=== PATIENT | female | born 1945 | race Caucasian/White ===

== ENCOUNTER 2017-08-28 11:35 | Day surgery (SDC) | payer MEDICARE, MEDICAID ==
[2017-08-28] VITALS (11 sets, daily range): BP systolic 132–160; BP diastolic 63–84
[~2017-08-28] VITALS: Ht 154.9 cm; Wt 90.4 kg
[2017-08-28] MEDS ORDERED: insulin Lispro (HumaLOG) vial - multi-dose SQ SCH (13:05)
[2017-08-28] MEDS ORDERED: dextrose 50%-water 50ml dispensing syringe IV PRN ×2 (13:05)
[2017-08-28] MEDS ORDERED: diphenhydrAMINE 25mg capsule PO PRN (13:05)
[2017-08-28] MEDS ORDERED: LORazepam 0.5 MG tablet PO PRN (13:05)
[2017-08-28] MEDS ORDERED: nitroGLYCERIN 0.4mg SUBLingual tab SL PRN (13:05)
[2017-08-28] MEDS ORDERED: glucagon, human recombinant 1mg kit SUBCUT PRN (13:05)
[2017-08-28] MEDS ORDERED: normal saline 1000ml 1,000 ML IV SCH (13:05)
[2017-08-28] MEDS ORDERED: dextrose ORAL solution 15 GM/59 ML bottle PO PRN ×2 (13:05)
[2017-08-28] MEDS ORDERED: METO1TAB25 PO (13:07)
[2017-08-28] MEDS ORDERED: LORA0.5T PO (13:07)
[2017-08-28] MEDS ORDERED: OXYGEN (13:07)
[2017-08-28] MEDS ORDERED: CHOL10002 PO (13:07)
[2017-08-28] MEDS ORDERED: NEBULIZER (13:07)
[2017-08-28] MEDS ORDERED: SERT100T10 PO (13:07)
[2017-08-28] MEDS ORDERED: CLOP75TA35 PO (13:07)
[2017-08-28] MEDS ORDERED: midazolam 2 mg/2 ml injection ONE (13:11)
[2017-08-28] MEDS ORDERED: fentaNYL/PF 50MCG/1 ML 2ML syringe ONE (13:11)
[2017-08-28] MEDS ORDERED: heparin 1,000 UNITS/NS 500ml 500 ML ONE ×2 (13:12)
[2017-08-28] MEDS ORDERED: LIDOcaine 1%/PF (10mg/ml) 5ml vial ONE (13:12)
[2017-08-28] MEDS ORDERED: iohexol 350MG/ML 100ml bottle IV ONE (13:12)
[2017-08-28] MEDS ORDERED: iohexol 350 MG/ML 50ML vial IV ONE (13:12)
[2017-08-28] MEDS ORDERED: ondansetron/PF 4mg/2ml inj IV PRN (15:15)
[2017-08-28] MEDS ORDERED: proCHLORperazine 10 MG/2 ml inj IV PRN (15:15)
[2017-08-28] MEDS ORDERED: HYDROcodone/acetaminophen 5mg/325mg tablet PO PRN (15:15)
[2017-08-28] MEDS ORDERED: OXAZEpam 15mg capsule PO PRN (15:15)
[2017-08-28] MEDS ORDERED: HYDROcodone/acetaminophen 10/325mg tab PO PRN (15:15)
[2017-08-28] MEDS ORDERED: insulin glargine (Lantus) pen - multi-dose SQ SCH (21:00)
== END 2017-08-28 20:20 | disposition home or self-care (01) ==
LOC: SSTAY O 11:35
PROVIDERS: ATTEND Internal Medicine Cardiovascular Disease
DX: I25.119 Atherosclerotic heart disease of native coronary artery with unspecified angina pectoris (principal); I25.2 Old myocardial infarction; I10 Essential (primary) hypertension; E78.5 Hyperlipidemia, unspecified; F17.210 Nicotine dependence, cigarettes, uncomplicated; J44.9 Chronic obstructive pulmonary disease, unspecified; F32.9 Major depressive disorder, single episode, unspecified; I48.91 Unspecified atrial fibrillation; M19.90 Unspecified osteoarthritis, unspecified site; E11.9 Type 2 diabetes mellitus without complications; F60.89 Other specific personality disorders; F43.10 Post-traumatic stress disorder, unspecified; Z95.5 Presence of coronary angioplasty implant and graft; Z86.74 Personal history of sudden cardiac arrest; Z79.899 Other long term (current) drug therapy
CPT/HCPCS: 82948; 93459; 99152; 99153; A6257; C1760; C1769; J1644; J2001; J2250; J3010; J7030; Q0163; Q9967; A4620; J1815